=== PATIENT | female | born 1950 | race Caucasian/White ===

== ENCOUNTER 2018-09-01 15:50 | Inpatient (IN) | payer OTHER ==
[~2018-09-01] VITALS: Ht 154.9 cm; Wt 68.0 kg
[~2018-09-01 15:50] MED LIST: BUPIVACAINE /PF 0.25% 30 ML VIAL INJ ONE; DEXAMETHASONE SOD PHOSPHATE 4 MG/ML VIAL IVP ONE; GLYCOPYRROLATE 0.2 MG/ML VIAL IJ ONE; KETOROLAC TROMETHAMINE 30 MG VIAL IVP ONE; LR 1,000 ML IV.SOLN IV ONE; MIDAZOLAM HCL 5 MG/5 ML VIAL IVP ONE; NEOSTIGMINE METHYLSULFATE 1 MG/ML, 10 ML VIAL IVP ONE; NS 1000 ML IV.SOLN IV ONE; NS IRRIG SOLN 1000 ML IR ONE; ONDANSETRON HCL 4 MG/2 ML VIAL IVP ONE; PROPOFOL 200MG/ 20ML VIAL (DIPRIVAN) IV ONE; ROCURONIUM BROMIDE 10 MG/ML (ZEMURON) IV ONE; SEVOFLURANE 15 MIN GAS INH ONE; fentaNYL CITRATE/PF 100 MCG/2 ML AMP IVP ONE
[2018-09-01 16:18] VITALS: BP_SYST 112
--- NOTE | 2018-09-01 16:24 | NUR ---
Patient to ER bed 8 to gown for evaluation. Side rails up. Report given to Iva ALEX.
--- NOTE | 2018-09-01 16:33 | NUR ---
Dr. Agrawal at bedside, examining the pt.
--- NOTE | 2018-09-01 16:38 | NUR ---
Pt. lying down hob up, alert and oriented x4, brought in pt. presents to ER with epigastric pain for one month before and eating. pt denies chest pain, no nausea/vomiting at this time.
[2018-09-01] MEDS ORDERED: LIDOCAINE VISCOUS 2%, 15 ML UDC MM ONE (16:45)
[2018-09-01] MEDS ORDERED: MAG-AL HYDROX/SIMETH 30 ML UDC PO ONE (16:45)
[2018-09-01] MEDS ORDERED: BELLADONNA ALKALOIDS/PHENOBARB 5 ML UDC PO ONE (16:45)
[2018-09-01] MEDS ORDERED: PANTOPRAZOLE SODIUM 40 MG TAB PO ONE (17:15)
[2018-09-01] MEDS ORDERED: NACL 0.9% 1,000 ML IV ONE (17:53)
[2018-09-01] MEDS ORDERED: KETOROLAC TROMETHAMINE 30 MG VIAL IVP ONE (18:00)
[2018-09-01] MEDS ORDERED: ONDANSETRON HCL 4 MG/2 ML VIAL IVP ONE (18:00)
[2018-09-01 18:41] LABS: RED BLOOD CELL COUNT(AUTO) 4.74 MIL/uL (4.2-6.2); WHITE BLOOD COUNT (AUTO) 6.7 K/uL (4.8-10.8)
[2018-09-01 18:42] LABS: HEMATOCRIT 42.4 % (36-48); HEMOGLOBIN 14.1 g/dL (12.0-16.0); LYMPHOCYTES % (AUTO) 23.2 % (20.5-51.5); MEAN CORPUSCULAR HEMOGLOBIN 30 pg (27-31); MEAN CORPUSCULAR HGB CONC 33 % (32-36); MEAN CORPUSCULAR VOLUME 89 fL (79.0-98.0); NEUTROPHILS % (AUTO) 64.4 % (40.0-70.0); PLATELET COUNT (AUTO) 256 K/uL (130-430); RED CELL DISTRIBUTION WIDTH 11.4 % (9.0-15.0)
[2018-09-01 18:43] LABS: BASOPHILS % (AUTO) 0.5 % (0.0-2.0); EOSINOPHILS # (AUTO) 0.2 K/uL (0.0-0.4); EOSINOPHILS % (AUTO) 2.5 % (0.0-4.0); LYMPHOCYTES # (AUTO) 1.6 K/uL (1.0-5.5); MONOCYTES # (AUTO) 0.6 K/uL (0.0-1.0); MONOCYTES % (AUTO) 9.4 % (1.7-9.3); NEUTROPHILS # (AUTO) 4.3 K/uL (1.8-7.7)
[2018-09-01 18:45] LABS: CALCIUM 9.4 mg/dL (8.4-11.0); POTASSIUM 3.9 mmol/L (3.5-5.1)
[2018-09-01 18:46] LABS: ALBUMIN 3.6 g/dL (3.4-4.8); CREATININE 0.85 mg/dL (0.55-1.30); TOTAL BILIRUBIN 0.4 mg/dL (0.0-1.0)
--- NOTE | 2018-09-01 19:48 | NUR ---
Pt is full code, paperwork placed in chart.
--- NOTE | 2018-09-01 20:05 | NUR ---
Patient will be admitted to care of Dr. Chris. Admitted to Medsurg unit. Will go to room 102B. Belongings list completed. Summary report printed. Report will be given at bedside.
--- NOTE | 2018-09-01 20:18 | NUR ---
ADMISSION NOTE Received patient from ER via gurney. Patient admitted with diagnosis of Cholelithiasis. Patient is awake, alert, oriented X 4. Patient oriented to hospital room, call light, toileting, pain management and safety-teach back done. Patient informed that ABI Bassett will be primary nurse and that their room number is 102A. Personal belongings checked and Belongings List documented. Call light within reach.
--- NOTE | 2018-09-01 20:18 | NUR ---
Transfer to [facility]. Licensed nurse present. IV present no signs or symptoms of infiltration.
[2018-09-01 20:29] VITALS: BP_SYST 118
[2018-09-01] MEDS ORDERED: MORPHINE 4 MG/ML INJ. SYRINGE IVP PRN ×2 (20:45)
[2018-09-01] MEDS ORDERED: ONDANSETRON HCL 4 MG/2 ML VIAL IVP PRN (20:45)
[2018-09-01] MEDS ORDERED: METOCLOPRAMIDE HCL 10 MG/2 ML VIAL IVP PRN (20:45)
--- NOTE | 2018-09-01 21:54 | NUR ---
CONSULT: CONSULT CALLED FOR DR. CERON I SPOKE WITH DINA DENISE REASON FOR CONSULT: CHOLELITHIASIS REQUESTING CONSULT: DR. PASCUAL GAS WELDING EQUIPMENT MECHANIC PHONE NUMBER: [phone]
[2018-09-01] MEDS: D5NS 1,000 ML IV SCH (23:25)
--- NOTE | 2018-09-02 00:45 | NUR ---
IVF INFILTRATED Pt's IVF was infiltrated. Attempted one time IV insertion and was unsuccessful. Pt requested to do IV insertion in the morning at 6am and wants to sleep. Educated pt on benefits of IV fluid and IV meds but pt states, "I really don't need it right now and I just want to get some sleep." Encouraged to use call light when needed. Pt refused bed alarm and was educated on risks and benefits of alarm, pt verbalizes understanding. Call light with pt and bed at lowest position. Will continue to monitor.
[2018-09-02 00:54] VITALS: BP_SYST 105
--- NOTE | 2018-09-02 04:06 | NUR ---
RESTING Pt is resting in bed with both eyes closed. With visible chest rise and fall with unlabored breathing noted. No complains of pain at this time. No signs of acute distress or SOB noted. Call light with pt and bed at lowest level. Will continue to monitor.
[2018-09-02] MEDS: D5NS 1,000 ML IV SCH ×2 (04:44→12:24)
--- NOTE | 2018-09-02 04:49 | NUR ---
IVF REINSERTION Pt's IV was reinserted by ABI Adams on left hand G20 with good blood return and flushable with saline. Pt tolerated well. Reconnected IVF of D5NS at 125ml/hr and infusing well. Call light with pt and bed at lowest position. Will continue to monitor.
--- NOTE | 2018-09-02 06:50 | NUR ---
CLOSING NOTES Pt is resting in bed with both eyes closed. With visible chest rise and fall with unlabored breathing noted. No complains of pain at this time. No signs of acute distress or SOB noted. All needs attended throughout the shift. Call light with pt and bed at lowest level. Will endorse to day shift nurse.
--- NOTE | 2018-09-02 07:20 | NUR ---
SPOKE TO DR SHINE Spoke to Dr. Shine over the phone and he asked pt's Abdominal US result, WBC, diagnosis and pt's condition at this time. Also told Dr. Shine that the pt had tolerable pain with a scale of 4/10 earlier and no complains of nausea or vomiting. Dr. Shine ordered HIDA scan and that he will come today to see the pt. Will carry out order and endorse to day shift nurse.
--- NOTE | 2018-09-02 07:48 | NUR ---
Opening Note/refuse bed alarm received report from shift supervisor RN, pt resting in bed, A&Ox4, respirations even and unlabored on room air, pt reports pain is controlled, no acute distress noted, IV site clean, dry, intact, and infusing well, pt educated on use of call light and asked to call for assistance, pt verbalized understanding, call light in reach, pt educated on use of bed alarm for pt safety, pt refusing bed alarm, bed in low and locked position, fall and aspiration precautions in place.
[2018-09-02 08:00] VITALS: BP_SYST 123
--- NOTE | 2018-09-02 09:55 | NUR ---
RN Rounds pt sleeping in bed, respirations even and unlabored on room air, no acute distress noted, IV infusing well, fall and aspiration precautions in place.
--- NOTE | 2018-09-02 12:04 | NUR ---
Ambulating in angel pt provided with non-slip footwear, pt ambulating in angel, steady gait noted, pt tolerating well.
--- NOTE | 2018-09-02 12:26 | NUR ---
IV fluid pt educated on use and side effects of IV fluid administration, pt verbalized understanding, new bag of IV fluids hung at this time, pt tolerating well, no redness or swelling noted at IV site, no acute distress noted, fall and aspiration precautions in place.
[2018-09-02 12:34] VITALS: BP_SYST 111
--- NOTE | 2018-09-02 13:14 | NUR ---
to HIDA scan pt stable, no acute distress noted, pt taken to HIDA scan via wheelchair.
--- NOTE | 2018-09-02 15:30 | NUR ---
back from HIDA scan pt back from HIDA scan, pt resting in bed, IV fluid infusing well, pt denies any pain, no acute distress noted, fall and aspiration precautions in place.
--- NOTE | 2018-09-02 16:15 | NUR ---
RN Rounds pt resting in bed, pt denies any pain, respirations even and unlabored on room air, no acute distress noted, fall and aspiration precautions in place.
[2018-09-02 16:46] VITALS: BP_SYST 116
--- NOTE | 2018-09-02 18:25 | NUR ---
Spoke with MD spoke with Dr. Shine, informed MD of preliminary radiology report, findings: no evidence of acute cholecystitis. Delayed biliary to bowel transit. informed MD that OR has been called and that they will call him tomorrow with a time for surgery, per MD okay to give pt tylenol for headache at this time, okay for pt to eat dinner, orders to have pt NPO after midnight, orders verified with read back.
[2018-09-02] MEDS: ACETAMINOPHEN 325 MG TABLET PO PRN (18:34)
--- NOTE | 2018-09-02 18:35 | NUR ---
Pain Management/Medication pt complaint of headache 11/02, pt educated on use and side effects of PRN tylenol, pt verbalized understanding, tolerated medication administration well, no acute distress noted, pt in bed eating dinner, pts spouse at bedside, fall and aspiration precautions in place.
--- NOTE | 2018-09-02 19:40 | NUR ---
Closing Note pt resting in bed, A&Ox4, respirations even and unlabored on room air, pt reports pain is controlled, no acute distress noted, IV site clean, dry, intact, and infusing well, pt tolerated dinner well, denies any nausea, pts spouse at bedside, pt educated on use of call light and asked to call for assistance, pt verbalized understanding, call light in reach, pt educated on use of bed alarm for pt safety, pt refusing bed alarm, bed in low and locked position, fall and aspiration precautions in place, care endorsed to Ezio ALEX.
[2018-09-02 20:23] VITALS: BP_SYST 105
--- NOTE | 2018-09-02 20:42 | NUR ---
Patient awake alert sitting up in bed @ the bedside , educated on use of call system bed controls , safety measures explained patient verbalize understanding call drake with patient .
[2018-09-02 23:37] VITALS: BP_SYST 108
--- NOTE | 2018-09-02 23:39 | NUR ---
ASSIST PATIENT OUT OF BED AMBULATES STEADY GAIT USING REST ROOM NO SOB ACTIVITY TOLERATED / .
--- NOTE | 2018-09-02 23:40 | NUR ---
PATIENT NPO @ MIDNIGHT ALERT & AWARE .
--- NOTE | 2018-09-02 23:41 | NUR ---
REFUSING , PATIENT DOES NOT WANT IVF AT NIGHT , REFUSING IVF .
--- NOTE | 2018-09-03 01:10 | NUR ---
Patient Resting Respirations Regular also unlabored verbally responsive no acute distress call drake with patient .
[2018-09-03] MEDS: D5NS 1,000 ML IV SCH ×2 (01:13→11:04)
--- NOTE | 2018-09-03 04:56 | NUR ---
Patient Resting Respirations Regular also unlabored call drake with patient NPO status in effect patient alert & aware .
--- NOTE | 2018-09-03 07:30 | NUR ---
OPENING NOTE PT AWAKE, AMBULATING AROUND UNIT, DENIES ANY DISTRESS. SAFETY MAINTAINED.
[2018-09-03 08:00] VITALS: BP_SYST 139
--- NOTE | 2018-09-03 10:00 | NUR ---
PT RESTING NO DISTRESS. SAFETY MAINTAINED.
[2018-09-03 11:22] LABS: BILIRUBIN,URINE NEGATIVE (NEGATIVE); BLOOD, URINE NEGATIVE (NEGATIVE); CLARITY/URINE SLIGHTLY HAZY (CLEAR); COLOR,URINE YELLOW (YELLOW); GLUCOSE,URINE NEGATIVE (NEGATIVE); KETONES,URINE NEGATIVE (NEGATIVE); LEUKOCYTE ESTERASE ,URINE NEGATIVE (NEGATIVE); NITRITE, URINE NEGATIVE (NEGATIVE); PH,URINE 7.5 (5.0-8.0); PROTEIN URINE NEGATIVE (NEGATIVE); UROBILINOGEN,URINE 0.2 (0.2-1.0)
--- NOTE | 2018-09-03 12:06 | NUR ---
pt taken to surgery at this time.
[2018-09-03 12:44] VITALS: BP_SYST 120
[2018-09-03] MEDS ORDERED: LR 1,000 ML IV SCH (12:47)
[2018-09-03] MEDS ORDERED: HYDROmorphone 2 MG/ML VIAL IVP PRN ×2 (13:00)
[2018-09-03] MEDS ORDERED: HYDROmorphone 1 MG INJ. 1 MG/ML AMPUL IVP PRN ×2 (13:00→13:15)
[2018-09-03] MEDS ORDERED: MEPERIDINE HCL/PF 25 MG/ML DISP.SYRIN IVP PRN (13:00)
[2018-09-03] MEDS ORDERED: ACETAMINOPHEN 325 MG TABLET PO PRN (13:15)
--- NOTE | 2018-09-03 14:15 | NUR ---
PT BACK FROM SURGERY. VITAL STABLE.
[2018-09-03] MEDS: NACL 0.9% 1,000 ML IV SCH (14:42)
[2018-09-03] MEDS: CEFAZOLIN 2 GM IVPB PREMIX 50 ML IV SCH ×2 (15:18→21:20)
--- NOTE | 2018-09-03 16:10 | NUR ---
pt c/o nausea, given zofran as ordered. no other distress noted.
[2018-09-03 17:12] VITALS: BP_SYST 119
--- NOTE | 2018-09-03 19:09 | NUR ---
closing note all needs met through shift, safety maintained, will endorse care to night time babysitter.
[2018-09-03 21:07] VITALS: BP_SYST 112
--- NOTE | 2018-09-03 22:00 | NUR ---
ANCEF 2 GM IVPB DOSE GIVEN NO S/SX OF ALLERGIC REACTION skin Rash free no complaints made .
--- NOTE | 2018-09-03 22:52 | NUR ---
Patient awake assist out of bed to rest room ambulates BRP urinating no difficulty noted tolerating .
--- NOTE | 2018-09-03 22:54 | NUR ---
ABDOMINAL dressings intact five post - op surgery no bleeding noted continue to monitor .
[2018-09-03 23:33] VITALS: BP_SYST 108
[2018-09-04] MEDS: NACL 0.9% 1,000 ML IV SCH (01:08)
[2018-09-04] MEDS: ACETAMINOPHEN 325 MG TABLET PO PRN (01:09)
--- NOTE | 2018-09-04 02:56 | NUR ---
TYLENOL 650 MG PO GIVEN FOR GENERAL PAIN 11/02 & HELPFUL , patient resting .
--- NOTE | 2018-09-04 05:36 | NUR ---
ASSIST out of bed ambulates steady gait no SOB chest movement symmetrical abdominal DSD intact no bleeding noted .
[2018-09-04 07:35] LABS: HEMATOCRIT 39.3 % (36-48); HEMOGLOBIN 13.2 g/dL (12.0-16.0); RED BLOOD CELL COUNT(AUTO) 4.52 MIL/uL (4.2-6.2)
[2018-09-04 07:36] LABS: EOSINOPHILS % (AUTO) 0.1 % (0.0-4.0); LYMPHOCYTES # (AUTO) 0.6 K/uL (1.0-5.5); MEAN CORPUSCULAR HEMOGLOBIN 29 pg (27-31); MEAN CORPUSCULAR HGB CONC 34 % (32-36); MEAN CORPUSCULAR VOLUME 87 fL (79.0-98.0); MONOCYTES # (AUTO) 0.5 K/uL (0.0-1.0); MONOCYTES % (AUTO) 6.5 % (1.7-9.3); NEUTROPHILS # (AUTO) 5.9 K/uL (1.8-7.7); NEUTROPHILS % (AUTO) 84.4 % (40.0-70.0); PLATELET COUNT (AUTO) 240 K/uL (130-430); RED CELL DISTRIBUTION WIDTH 11.5 % (9.0-15.0)
[2018-09-04 08:00] VITALS: BP_SYST 114
--- NOTE | 2018-09-04 08:00 | NUR ---
initial notes rec patient awake alert sitting at the edge of the bed. resp easy and unlabored. bed to the lowest position and side rails up and locked. call light within reached and know when to call for assists. denies pain at this time. will continue to monitor patient.
[2018-09-04 08:12] LABS: CALCIUM 9.3 mg/dL (8.4-11.0); POTASSIUM 3.7 mmol/L (3.5-5.1)
[2018-09-04 08:13] LABS: CREATININE 0.85 mg/dL (0.55-1.30); TOTAL BILIRUBIN 0.6 mg/dL (0.0-1.0)
--- NOTE | 2018-09-04 11:58 | NUR ---
rounds ambulating on the hallway and shaista well. denies pain. call light within reached.
--- NOTE | 2018-09-04 14:00 | NUR ---
rounds ambulating at intervals in the hallway. denies pain. call light within reached.
[2018-09-04 15:00] VITALS: BP_SYST 115
--- NOTE | 2018-09-04 15:00 | NUR ---
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 instructed re appt with dr norris in a week. no sob noted. ivl and heplock was removed. ambulated and refused a wheelchair. accompanied by . stable and needs attended.
--- NOTE | 2018-09-04 16:00 | NUR ---
PAGED PAGED AT [phone] SPOKE WITH SHYAM.
[2018-09-04 16:41] VITALS: BP_SYST 115
--- NOTE | 2018-09-09 11:42 | NUR ---
Discharge Follow Up Phone Call Independent Living Instructor phoned patient, , on 09/08/18 but there was no answer and no voicemail. Independent Living Instructor phoned patient's spouse, , but the line was busy. BUCKET WASH OPERATOR phoned patient today and left a voicemail message. Patient returned the call. Patient stated that she was doing better. She had a visit to the ED on 09/08/18 due to pain, but it resolved. She has made a follow up appointment with her surgeon, Dr Shine, for 09/10/18. She had no other questions or concerns but will call Independent Living Instructor if needed.
== END 2018-09-04 17:00 | disposition home or self-care (01) | DRG 419 ==
LOC: SED 15:50 → SMU 20:06
PROVIDERS: ADMIT Internal Medicine Hospice and Palliative Medicine; ATTEND Internal Medicine Hospice and Palliative Medicine
PROC: 0FT44ZZ Resection of Gallbladder, Percutaneous Endoscopic Approach (ICD-10-PCS; principal; 2018-09-03 10:30)
DX: K80.00 Calculus of gallbladder with acute cholecystitis without obstruction (principal); K29.70 Gastritis, unspecified, without bleeding
CPT/HCPCS: 36415; 71045; 76700-TC; 78226; 80053; 81003; 83690-TC; 85025; 85730-TC; 87081; 88304; 93005; 94010; 96361; 96374; 96375; 99285; A9537; C1727; J0690; J1100; J1885; J2001; J2250; J2405; J2704; J2710; J3010; J3490; J7030; J7042; J7120

== ENCOUNTER 2018-09-08 15:00 | Emergency (ER) | payer OTHER ==
[~2018-09-08] VITALS: Ht 154.9 cm; Wt 65.8 kg
[2018-09-08 15:17] VITALS: BP_SYST 106
[2018-09-08 17:06] LABS: CALCIUM 9.4 mg/dL (8.4-11.0); CREATININE 0.92 mg/dL (0.55-1.30); POTASSIUM 3.8 mmol/L (3.5-5.1)
[2018-09-08 17:08] LABS: BASOPHILS % (AUTO) 0.6 % (0.0-2.0); EOSINOPHILS # (AUTO) 0.2 K/uL (0.0-0.4); EOSINOPHILS % (AUTO) 3.1 % (0.0-4.0); HEMATOCRIT 40.9 % (36-48); HEMOGLOBIN 13.7 g/dL (12.0-16.0); LYMPHOCYTES # (AUTO) 1.8 K/uL (1.0-5.5); LYMPHOCYTES % (AUTO) 35.6 % (20.5-51.5); MEAN CORPUSCULAR HEMOGLOBIN 30 pg (27-31); MEAN CORPUSCULAR HGB CONC 34 % (32-36); MEAN CORPUSCULAR VOLUME 88 fL (79.0-98.0); MONOCYTES # (AUTO) 0.5 K/uL (0.0-1.0); MONOCYTES % (AUTO) 9.1 % (1.7-9.3); NEUTROPHILS # (AUTO) 2.6 K/uL (1.8-7.7); NEUTROPHILS % (AUTO) 51.6 % (40.0-70.0); PLATELET COUNT (AUTO) 336 K/uL (130-430); RED BLOOD CELL COUNT(AUTO) 4.63 MIL/uL (4.2-6.2); RED CELL DISTRIBUTION WIDTH 11.5 % (9.0-15.0); WHITE BLOOD COUNT (AUTO) 5.1 K/uL (4.8-10.8)
[2018-09-08 17:10] LABS: ALBUMIN 3.2 g/dL (3.4-4.8); TOTAL BILIRUBIN 0.2 mg/dL (0.0-1.0)
[2018-09-08 18:40] LABS: PROTHROMBIN TIME 9.9 SECS (9.5-12.5)
[2018-09-08 19:07] VITALS: BP_SYST 115
== END 2018-09-08 19:07 | disposition home or self-care (01) ==
LOC: SED 15:00
DX: G89.18 Other acute postprocedural pain (principal); R10.11 Right upper quadrant pain; Z90.49 Acquired absence of other specified parts of digestive tract
CPT/HCPCS: 36415; 80053; 82150-TC; 83690-TC; 85025; 85610-TC; 85730-TC; 99284